=== PATIENT | male | born 2000 | race Caucasian/White ===

== ENCOUNTER 2024-05-03 15:50 | Emergency (ER) | payer BC, SELFPAY ==
--- NOTE | ~2024-05-03 | CT_ITS ---
CLINICAL HISTORY: pain, CT abdomen and pelvis with contrast Comparison: None Findings: No consolidation or effusion. Scattered subcentimeter low-density lesions throughout the liver, likely cysts or hemangiomas, too small to characterize. No bowel obstruction, pneumoperitoneum, or pneumatosis. Normal appendix. The bones are intact. IMPRESSION: No acute findings. This document has been electronically signed by: Tony Carrillo MD on 05/04/2024 02:28:04
--- NOTE | 2024-05-03 16:13 | ED_ITS ---
HPI - General Adult General Chief complaint: Nausea/Vomiting/Diarrhea Stated complaint: nauseous/vomiting/dizzy/headache Time Seen by Provider: 05/03/24 22:18 Source: patient Limitations: no limitations History of Present Illness ED Provider: Marylou Ivan PA-C HPI narrative: 23-year-old male with a history of anxiety presents with the abdominal pain x2 weeks. Pain is generalized, triggered with eating. Associated nausea vomiting diarrhea. The diarrhea is intermittent, the nausea vomiting is a daily event. Denies sick contacts with same symptoms, recent travel, use of antibiotics or hospitalization. Related Data Previous Rx's ?Medication ?Instructions ?Recorded sucralfate 100 mg/mL oral 10 ml PO QID PRN indigestion #400 05/04/24 suspension (Carafate) mL Allergies Allergy/AdvReac Type Severity Reaction Status Date / Time No Known Allergies Allergy Verified 05/03/24 16:17 [No Known Allergies*] Review of Systems 2 Review of Systems: Yes all other systems are reviewed and are negative Constitutional: Constitutional: Denies fatigue and Denies fever(s) Cardiovascular: Cardiovascular: Denies chest pain and Denies dyspnea Respiratory: Respiratory: Denies cough and Denies dyspnea Gastrointestinal: Gastrointestinal: Reports abdominal pain, Denies constipation, Reports diarrhea, Reports nausea and Reports vomiting Genitourinary: Genitourinary: Denies hematuria, Denies dysuria and Denies flank pain Endocrine: Endocrine: Denies fatigue PMFSH Past Medical History Attestation statement: The following information was validated with the patient. Physical Exam ED Vital Signs: Vital Signs - 24 hr 05/03/24 16:14 05/04/24 00:55 Temperature 98.2 F Pulse Rate 103 H 75 Respiratory Rate 18 18 Blood Pressure 112/85 119/61 Pulse Oximetry 98 100 Oxygen Delivery Method Room Air Room Air BMI result Body Mass Index 23.0 Const Other: Alert well-appearing Orientation/consciousness: patient oriented x3 Resp Effort & Inspection: normal respiratory effort Cardio Other: Normal peripheral perfusion GI Other: Abdomen is soft, nondistended, no focal regions of palpable pain no guarding Skin Other: Warm dry no rash Neuro General: patient oriented x3, gait normal, no focal motor deficits and CN's II- XI intact bilaterally Psych Other: Calm cooperative Course Course Course Narrative: This is a rapid medical exam performed by C. Flower, NETWORK SYSTEMS INTEGRATOR: Additional HPI, ROS, PE not included below will be deferred to primary provider. Patient is a 23-year-old male presenting to the emergency department with complaint of epigastric pain, nausea, vomiting, diarrhea, headache and dizziness. States epigastric pain has significantly improved. Symptoms for over 2 weeks. Denies fevers. Seen at urgent care last week and prescribed zofran, states is not helping. Plan: strep and viral serology, labs 1813 Patient to triage stating he feels lightheaded. Rechecked VS, 149/80, HR 106, 99% Medications Administered Discontinued Medications Generic Name Dose Route Start Last Admin Trade Name Freq PRN Reason Stop Dose Admin Dicyclomine HCl 20 mg 05/03/24 23:17 05/04/24 00:48 Dicyclomine Hcl 10 Mg Capsule PO 05/03/24 23:18 20 mg ONCE ONE Administration Sodium Chloride 1,000 mls @ 999 mls/hr 05/03/24 23:30 05/04/24 00:49 Ns IV 05/04/24 00:30 999 mls/hr .Q1H1M FAVIAN Administration Iohexol 85 ml 05/04/24 00:16 05/04/24 00:17 Iohexol 350 Mg/Ml 100 Ml Infus..Btl IV 05/04/24 00:17 85 ml ONCE ONE Administration Ondansetron HCl 4 mg 05/03/24 23:17 05/04/24 00:48 Ondansetron Hcl 4 Mg/2 Ml Vial IVPUSH 05/03/24 23:18 4 mg ONCE ONE Administration Medical Decision Making Medical Decision Making MDM Narrative: 23-year-old male with a history of anxiety presents with the abdominal pain x2 weeks. Pain is generalized, triggered with eating. Associated nausea vomiting diarrhea. The diarrhea is intermittent, the nausea vomiting is a daily event. Denies sick contacts with same symptoms, recent travel, use of antibiotics or hospitalization. No relevant issues History: Per patient I have considered the following differential diagnoses: Biliary colic, cholecystitis, viral gastroenteritis, diverticulitis, traveler's diarrhea, C diff Plan: Patient here with generalized abdominal pain and a nonfocal exam. Given postprandial symptoms, I am considering underlying biliary pathology as cause for symptoms, however, there was no focal right upper quadrant discomfort on exam. This could be viral gastroenteritis, however he has had symptoms for a prolonged duration of time. To note he has no risk factors for C diff or traveler's diarrhea. We will be obtaining a CT scan. Labs: No leukocytosis, not anemic, no electrolyte abnormality, LFTs normal, viral panel negative, urine not CT abdomen and pelvis:Findings: No consolidation or effusion. Scattered subcentimeter low-density lesions throughout the liver, likely cysts or hemangiomas, too small to characterize. No bowel obstruction, pneumoperitoneum, or pneumatosis. Normal appendix. The bones are intact. IMPRESSION: No acute findings. This document has been electronically signed by: Tony Carrillo MD on 05/04/2024 02:28:04 Lab Data 05/03/24 16:26 05/03/24 16:26 Labs: Lab Results 05/03/24 Range/Units 16:26 WBC 6.9 (4.8-10.8) X10*3/uL RBC 5.22 (4.60-5.80) X10*6/uL Hgb 16.8 (14.0-18.0) g/dl Hct 46.7 (42.0-52.0) % MCV 89.5 (80.0-98.0) fL MCH 32.2 (27.0-33.0) pg MCHC 36.0 (31.0-36.0) g/dl RDW 11.9 (11.0-16.0) % Plt Count 292 (160-400) X10*3/uL MPV 9.2 L (9.4-12.4) fL Immature Gran % (Auto) 0.3 (0.0-0.4) % Neut % (Auto) 73.5 H (45-73) % Lymph % (Auto) 18.8 L (20-40) % Phelps % (Auto) 7.0 (2-11) % Eos % (Auto) 0.3 (0-4) % Baso % (Auto) 0.1 (0-2) % Lymph # (Auto) 1.3 (1.2-4.9) X10*3/uL [place]helps # (Auto) 0.5 (0.1-1.2) X10*3/uL Eos # (Auto) 0.0 (0.0-0.4) X10*3/uL Baso # (Auto) 0.0 (0.0-0.2) X10*3/uL Abs Immat Gran (auto) 0.02 (0.00-0.03) X10*3/uL Absolute Neuts (auto) 5.0 (2.0-8.3) x10*3/uL Absolute Nucleated RBC 0.000 (0.0-0.012) X10*3/uL Nucleated RBC % (auto) 0.0 (0.0-0.2) /100WBC Sodium 138 (135-145) mmol/L Potassium 3.4 (3.3-5.1) mmol/L Chloride 104 (96-108) mmol/L Carbon Dioxide 25 (22-29) mmol/L Anion Gap 12 (12-20) BUN 9 (9-16) mg/dL Creatinine 0.96 (0.5-1.4) mg/dL Estim Creat Clear Calc 98.4 Estimated GFR > 60 Random Glucose 93 (60-115) mg/dL Calcium 9.6 (8.4-10.2) mg/dL Magnesium 2.1 (1.6-2.6) mg/dL Total Bilirubin 0.9 (0.0-1.0) mg/dL AST 19 (5-37) U/L ALT 17 (0-40) U/L Alkaline Phosphatase 69 (39-117) U/L Total Protein 7.6 (6.5-8.0) g/dL Albumin 5.0 (3.5-5.0) g/dL Urine Color Yellow Urine Appearance Clear Urine pH 6.0 (5.0-9.0) Ur Specific [place] 1.010 (1.005-1.025) Urine Protein Negative (Neg-Trace) mg/dL Urine Glucose (UA) Negative (Negative) mg/dL Urine Ketones 15 (Negative) mg/dL Urine Blood Negative (Negative) Urine Nitrite Negative (Negative) Ur Leukocyte Esterase Negative (Negative) Influenza Type A (PCR) NEGATIVE (Negative) Influenza Type B (PCR) NEGATIVE (Negative) RSV RNA Qual (PCR) NEGATIVE (Negative) SARS-CoV-2 RNA (RT-PCR) NEGATIVE (Negative) S. pyogenes GrpA COSME Negative (Negative) Discharge Plan Discharge Clinical Impression: Abdominal pain Patient Disposition: Home, Self-Care Instructions: Diet for Stomach Ulcers and Gastritis (ED), Gastroesophageal Reflux Disease (ED), Abdominal Pain (ED) Additional Instructions: All of your labs were normal, there were no acute findings on the CT scan. I do believe your symptoms could be multifactorial. You could have IBS, you could have poorly controlled acid reflux. See home care instructions. There are many dietary triggers such as acidic food, spicy food, fatty food, meant, anything carbonated, alcohol. Do not eat 3 hours before bed. Eating smaller meals throughout the day, can help curb symptoms as well. Use the Carafate as needed for abdominal discomfort associated with the eating. You need to follow up with primary care for further assessment, if your symptoms persist. Prescriptions: New sucralfate [Carafate] 100 mg/mL suspension 10 ml PO QID PRN (Reason: indigestion) Qty: 400 0RF Rx Instructions: swish in mouth and swallow; use after food/drink Stand Alone Forms: Work/School Release Interventions: ED Discharge Assessment Last Done: 05/04/24 03:00 Discharge Date/Time: 05/04/24 03:00 Print Language: Malay
[2024-05-03 16:14] VITALS: BP 112/85; PULSE 103; RESP 18; TEMP 36.8; O2SAT 98; BMI 23.0
[2024-05-03 16:32] LABS: MANUAL DIFF FLAG NO
[2024-05-03 16:35] LABS: Appearance Urine Clear; Color Urine Yellow; Glucose Urine UA Negative (Negative); Leukocyte Esterase Urine Negative (Negative); Nitrite Urine Negative (Negative); Urine Blood Negative (Negative); Urine Ketones 15 mg/dL (Negative); Urine Protein Negative (Neg-Trace)
[2024-05-03 16:41] LABS: Basophils Percent Auto 0.1 % (0-2); Eosinophils Percent Auto 0.3 % (0-4); Hematocrit 46.7 % (42.0-52.0); Hemoglobin 16.8 g/dl (14.0-18.0); IDNOW Serial# 58CA691E; Imm Gran Abs Auto 0.02 X10*3/uL (0.00-0.03); Imm Gran Pct Auto 0.3 % (0.0-0.4); Lymphocytes Absolute Auto 1.3 X10*3/uL (1.2-4.9); Lymphocytes Percent Auto 18.8 % (20-40); Mean Corpuscular Hemoglobin 32.2 pg (27.0-33.0); Mean Corpuscular Volume 89.5 fL (80.0-98.0); Mean Platelet Volume 9.2 fL (9.4-12.4); Monocytes Absolute Auto 0.5 X10*3/uL (0.1-1.2); Neutrophils Percent Auto 73.5 % (45-73); Platelet Count 292 X10*3/uL (160-400); Red Blood Count 5.22 X10*6/uL (4.60-5.80); Red Cell Distribution Width 11.9 % (11.0-16.0); Strep A Nucleic Acid Negative (Negative); White Blood Count 6.9 X10*3/uL (4.8-10.8)
[2024-05-03 16:59] LABS: Alanine Aminotransferase 17 U/L (0-40); Alkaline Phosphatase 69 U/L (39-117); Anion Gap 12 (12-20); Aspartate Amino Transferase 19 U/L (5-37); Bilirubin Total 0.9 mg/dL (0.0-1.0); Blood Urea Nitrogen 9 mg/dL (9-16); Calcium 9.6 mg/dL (8.4-10.2); Carbon Dioxide 25 mmol/L (22-29); Chloride 104 mmol/L (96-108); Creatinine Clr Calc Pharmacy 98.4; Estimated Glomerular Filt Rate > 60; Glucose Random 93 mg/dL (60-115); Magnesium 2.1 mg/dL (1.6-2.6); Potassium 3.4 mmol/L (3.3-5.1); Sodium 138 mmol/L (135-145); Total Protein 7.6 g/dL (6.5-8.0)
[2024-05-03 17:15] LABS: Influenza A PCR NEGATIVE (Negative); Influenza B PCR NEGATIVE (Negative); Resp Syncy Virus RNA Qual PCR NEGATIVE (Negative); SARS COV2 PCR INHOUSE NEGATIVE (Negative)
[2024-05-04] MEDS: iohexoL 350 MG/ML 100 ML INFUS..BTL 85 ML IV (00:17)
[2024-05-04] MEDS: ondansetron HCL 4 MG/2 ML VIAL IVPUSH (00:48)
[2024-05-04] MEDS: Dicyclomine HCl 10 MG CAPSULE 20 MG PO (00:48)
[2024-05-04] MEDS: 0.9 % Sodium Chloride 1,000 ML 999 ML IV (00:49)
[2024-05-04 00:55] VITALS: BP 119/61; PULSE 75; RESP 18; O2SAT 100
[2024-05-04 02:56] VITALS: BP 99/53; PULSE 68; RESP 14; TEMP 37.2; O2SAT 98
[2024-05-04 03:00] VITALS: BP 99/53; PULSE 68; RESP 14; TEMP 37.2; O2SAT 98
== END 2024-05-04 03:00 | disposition home or self-care (01) ==
PROVIDERS: Registered Nurse Emergency; Emergency Provider Emergency Medicine; PCP Internal Medicine
DX: R10.2 Pelvic and perineal pain (principal); R11.2 Nausea with vomiting, unspecified; R42 Dizziness and giddiness; R51.9 Headache, unspecified; R19.7 Diarrhea, unspecified; Z03.818 Encounter for observation for suspected exposure to other biological agents ruled out; Z79.899 Other long term (current) drug therapy
CPT/HCPCS: 0241U; 74177; 80053; 81003; 83735; 85025; 87651; 96374; 99284; J2405; Q9967

== ENCOUNTER → 2024-05-04 | Outpatient (BNV) | payer BC, SELFPAY | PROVIDERS: Emergency Provider Emergency Medicine; PCP Internal Medicine; Visit Provider Radiology Diagnostic Radiology | DX: R10.9 Unspecified abdominal pain (principal) | CPT/HCPCS: 74177 ==

== ENCOUNTER 2024-06-11 09:51 | Outpatient (AMB) | payer BC, SELFPAY ==
--- NOTE | 2024-06-11 09:59 | MHC.PC.OV ---
Vital Signs 06/11/24 10:01 Height 5 ft 2.5 in Weight 142 lb BMI 25.6 BP 120/68 Blood Pressure Location Rt brachial Pulse 80 Pulse Source Pulse Oximeter Temp 97.9 F Pulse Oximetry (%) 98 Intake Visit Reasons: establish care Intake Note: having anxiety for over the past month which is making him vomit Allergies No Known Allergies [No Known Allergies*] Allergy (Verified 06/11/24 10:28) Medication List - Last Reconciled 06/11/24 by Brynn Tapia PA-C No Known Home Meds Dental Screening Did you have a dental visit in the last 12 months?: No Did you have a dental problem in the last 6 months where you did not have access to dental care?: No Was dental information given to patient?: [facility] Medical History (Updated 06/11/24 @ 10:49 by Brynn Tapia PA-C) Abdominal pain Nausea and vomiting in adult Abnormal liver CT Anxiety Establishing care with new doctor, encounter for ADHD Family History Mother Overdose Paternal Grandmother Breast cancer Father Aldridge's palsy Social History Patient Tobacco Use Status: Never used Tobacco e-Cigarette/Vaping Use: Never Used Second Hand Smoke Exposure: No service: No Current occupational status: employed Current occupation: at [employer] Cognitive needs: No Hearing needs: No Vision needs: No Physical exam (Primary Care) Vital Signs: Last Vital Signs Temp 97.9 F 06/11/24 10:01 Pulse 80 06/11/24 10:01 BP 120/68 06/11/24 10:01 Pulse Ox 98 06/11/24 10:01 Care Plan Goal for BP management: <130/80 at goal BMI result Body Mass Index 25.6 BMI Assessment/Plan discussion: High BMI High, discussed plan: lifestyle, weight reduction, dietary, physical activity and alcohol moderation Coding Level of Care Code New Pt Level 4 (90487) Complex EM visit Add On G2211 Diagnoses Establishing care with new doctor, encounter for Z76.89 ADHD F90.9 Anxiety F41.[address] R93.2 Nausea and vomiting in adult R11.2 Abdominal pain R10.9 Assessment & Plan Assessment & Plan (1) Establishing care with new doctor, encounter for: Code(s): Z76.89 - Persons encountering health services in other specified circumstances Category: Medical (2) ADHD: Code(s): F90.9 - Attention-deficit hyperactivity disorder, unspecified type Category: Medical Plan: Will attempt to obtain medical records from oven unloader to ensure patient was diagnosed with ADHD and if so patient we can re-evaluate patient and also send referrals if indicated. Will continue to monitor. (3) Anxiety: Code(s): F41.9 - Anxiety disorder, unspecified Category: Medical Plan: Anxiety is well controlled at this time. Patient does not feel like he needs any medications. Denies any SI or HI. Will refer to GI to evaluate the patient's abdominal pain, nausea vomiting to ensure that this abdominal pain and nausea vomiting is not related to any other abnormality due to CT scan revealed multiple liver lesions. Condition is chronic and stable will continue to monitor. (4) Abnormal liver CT: Code(s): R93.2 - Abnormal findings on diagnostic imaging of liver and biliary tract Category: Medical Plan: Patient being referred to GI due to intermittent nausea vomiting along with abdominal pain. May be related to anxiety although had a recent CT scan on 05/03/2024 which revealed multiple liver lesions therefore will further evaluate. Reports 8 lb weight loss. Denies any other symptoms related to this. Will refer to GI for further evaluation. Condition is stable at this time. (5) Nausea and vomiting in adult: Code(s): R11.2 - Nausea with vomiting, unspecified Category: Medical Plan: Patient with intermittent nausea vomiting along with abdominal pain. May be related to anxiety. Although had a CT scan on 05/03/2024 which revealed multiple liver lesions therefore will further evaluate. Reports a lb weight loss. Denies any other symptoms related to this. Will refer to GI for further evaluation and management. I offered patient antiemetics although reports he was given Zofran in the hospital upon discharge prescription and no symptomatic relief. Reports it is intermittent not constant. Condition is stable at this time. (6) Abdominal pain: Code(s): R10.9 - Unspecified abdominal pain Category: Medical Plan: Patient with intermittent nausea vomiting along with abdominal pain. May be related to anxiety. Although had a CT scan on 05/03/2024 which revealed multiple liver lesions therefore will further evaluate. Reports a lb weight loss. Denies any other symptoms related to this. Will refer to GI for further evaluation and management. I offered patient antiemetics although reports he was given Zofran in the hospital upon discharge prescription and no symptomatic relief. Reports it is intermittent not constant. Condition is stable at this time. Plan Plan Patient was informed and verbally consented to the use of an ambient scribe for clinic note documentation during this visit. 1. Abdominal Pain And Nausea Blood tests will be repeated to confirm the liver and renal function status. A referral to Gastroenterology will be made for a thorough evaluation and potential further imaging of the liver lesions. 2. Family History Of Breast Cancer Discussed self-examination importance, and PSA testing is arranged. 3. Weight Loss Emphasis is given to supporting nutritional intake and monitoring weight. 4. Anxiety The impact of anxiety on the patient's gastrointestinal symptoms is noted, with consideration for future intervention if necessary. 5. Liver Cysts/Hemangiomas Further investigation through Gastroenterology will assist in determining the precise nature of the liver lesions reported in the CT scan. Discussion Notes During the visit, we discussed the likely diagnosis of anxiety-related gastrointestinal discomfort and the potential for liver cysts or hemangiomas. I recommended a comprehensive blood work analysis to assess any underlying deficiencies or anomalies. I suggested a referral to Gastroenterology to further examine the liver lesions, which may entail imaging or active monitoring based on their advice. We reviewed his family history of breast cancer, emphasizing the importance of regular self-exams and discussed performing a PSA as a routine screening test. Additionally, I advised on general health maintenance, such as ensuring regular dental and eye examinations. Orders: Orders Complete Blood Count Auto Diff Today Z00.00 - Encounter for general adult medical examination without abnormal findings Comprehensive [place]. Panel Fast Today Z00.00 - Encounter for general adult medical examination without abnormal findings C Reactive Protein Today Z00.00 - Encounter for general adult medical examination without abnormal findings Lipid Panel Today Z00.00 - Encounter for general adult medical examination without abnormal findings Liver Panel Today Z00.00 - Encounter for general adult medical examination without abnormal findings Magnesium Today Z00.00 - Encounter for general adult medical examination without abnormal findings Phosphorus Today Z00.00 - Encounter for general adult medical examination without abnormal findings Vitamin B12 and Folate Today Z00.00 - Encounter for general adult medical examination without abnormal findings Vitamin D 25-OH Total Today Z00.00 - Encounter for general adult medical examination without abnormal findings Zinc Today Z00.00 - Encounter for general adult medical examination without abnormal findings PSA,Total (Free>4and<10) Today Z00. - Encounter for general adult medical examination without abnormal findings Erythrocyte Sedimentation Rate Today Z00.00 - Encounter for general adult medical examination without abnormal findings TSH reflex Free T4 Today Z00. - Encounter for general adult medical examination without abnormal findings Parathyroid Hormone Intact Today Z00.00 - Encounter for general adult medical examination without abnormal findings Hemoglobin A1c Today Z00. - Encounter for general adult medical examination without abnormal findings Vitamin B1 Today Z00.00 - Encounter for general adult medical examination without abnormal findings Testosterone, Total Today Z00. - Encounter for general adult medical examination without abnormal findings Medications: Discontinued sucralfate (Carafate) swish in mouth and swallow; use after food/drink Discontinued Reason: Patient Refused 10 mL PO QID PRN 400 mL 0RF indigestion Patient Instructions: Patient Instructions - Follow up with the recommended blood work, fasting for 10-12 hours hours before testing. - Visit the Gastroenterology specialist at the advised location for further evaluation of liver findings. - Maintain a balanced diet to help recover from recent weight loss. - Monitor anxiety levels and implement strategies that may help manage anxiety-related symptoms. - Be aware of any new or worsening symptoms and return if they occur. - Perform regular self-examinations and be informed of family breast cancer history. - Keep up with routine eye and dental screenings when possible. Scribe Plan - Not visible on output: History of Present Illness The patient is a 23-year-old male presenting to [facility] care with a new primary care provider. Patient has not seen a primary care provider since his oven unloader. He reports his oven unloader was Juan Rayo although he is not certain. He reports he was out of [place]. He reports recently he went to the emergency department on 05/03/2024 due to abdominal pain, nausea and vomiting. He believes it may be related to anxiety. Reports the abdominal pain is intermittent along with the nausea and vomiting. It is not present at this time. It comes on randomly. He has not noticed any foods are exacerbating this nausea, vomiting or abdominal pain. It usually goes away on its own without any medications per patient. He recently underwent a CT scan at the ER, where multiple small liver lesions were identified. The symptoms, especially nausea and vomiting, intensified over a period of two weeks, contributing to an 8-pound weight loss due to poor food intake. 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 His medical history includes Attention Deficit Hyperactivity Disorder (ADHD) and episodic anxiety. He mentioned a family history of breast cancer in his paternal grandmother, and his mother due to an overdose at a relatively young age of 46 last year June,. The patient denies a family history of colon cancer, including for himself. He is aware of the importance of regular screenings and plans to pursue both eye and dental exams to meet health maintenance needs. 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 - Family Status: Supported by his father and stepmother; his mother is due to an overdose. - Nutrition: Reports poor nutritional intake during episodes of nausea and vomiting, resulting in unintentional weight loss. - Functional Status: No reported impairments. Review of Systems - Gastrointestinal: Reports nausea, vomiting, and abdominal pain. - Psychological: Reports anxiety exacerbated in stressful situations. - General: Denies unintentional weight loss outside of the not eating period. - Respiratory: Denies issues. Physical Exam Appearance: Alert. Oriented X3. No acute distress. Head: Normal external exam. Normocephalic. Atraumatic. Eyes: Pupils are equal, round, and reactive to light. Extraocular movements intact. Conjunctiva and sclera normal. Eyelids normal. Ears: External auditory canal normal. Tympanic membranes normal. No wax buildup noted. Throat: Pharynx normal. Uvula midline. Moist mucous membranes. Neck: Normal inspection. Neck supple. Full range of motion. No adenopathy. Thyroid Normal. No meningeal signs. No neck mass noted. Cardiovascular: Normal heart rate and rhythm. Heart sound normal. No murmurs noted. Pulses normal throughout. Respiratory: No respiratory distress. Painless inspiration. Breath sounds normal. No wheezes/rales/rhonchi noted. Chest nontender. No accessory muscle usage noted or decreased air movement noted. Abdomen: Soft and nontender. Bowel sounds normal in all 4 quadrants. No distention noted. No organomegaly noted. No visible injury noted. No pain upon palpation of the liver. Back: No costovertebral angle tenderness. Full range of motion noted. Skin: Skin warm and dry. Normal skin color. Normal skin turgor. No rashes/lesions/lacerations noted. Extremities: No lower extremity edema. Extremities exhibit normal range of motion. Extremities nontender. Neuro: Oriented X 3. No motor deficit. No sensory deficit. Reflexes normal. Results - Imaging: CT scan of the abdomen revealing scattered submental low-density lesions throughout the liver, likely cysts or hemangiomas. - Blood Work from ER: LFTs normal; negative for COVID; urine normal.
[2024-06-11 10:01] VITALS: BP 120/68; PULSE 80; TEMP 36.6; O2SAT 98; BMI 25.6
== END 2024-06-11 10:27 | disposition home or self-care (01) ==
LOC: HO.HMCSH 09:51
PROVIDERS: PCP Internal Medicine; Visit Provider Physician Assistant Medical
DX: Z76.89 Persons encountering health services in other specified circumstances (principal); F90.9 Attention-deficit hyperactivity disorder, unspecified type; F41.9 Anxiety disorder, unspecified; R93.2 Abnormal findings on diagnostic imaging of liver and biliary tract; R11.2 Nausea with vomiting, unspecified; R10.9 Unspecified abdominal pain

== ENCOUNTER 2024-06-11 09:51 | Outpatient (REF) | payer BC, SELFPAY ==
[2024-06-11 13:29] LABS: MANUAL DIFF FLAG NO
[2024-06-11 13:41] LABS: Basophils Percent Auto 0.2 % (0-2); Eosinophils Percent Auto 0.7 % (0-4); Hematocrit 46.9 % (42.0-52.0); Hemoglobin 15.8 g/dl (14.0-18.0); Imm Gran Abs Auto 0.01 X10*3/uL (0.00-0.03); Imm Gran Pct Auto 0.2 % (0.0-0.4); Lymphocytes Absolute Auto 1.1 X10*3/uL (1.2-4.9); Lymphocytes Percent Auto 24.1 % (20-40); Mean Corpuscular HGB Conc 33.7 g/dl (31.0-36.0); Mean Corpuscular Hemoglobin 31.4 pg (27.0-33.0); Mean Corpuscular Volume 93.2 fL (80.0-98.0); Mean Platelet Volume 10.1 fL (9.4-12.4); Monocytes Absolute Auto 0.3 X10*3/uL (0.1-1.2); Monocytes Percent Auto 7.2 % (2-11); Neutrophils Absolute Auto 3.1 x10*3/uL (2.0-8.3); Neutrophils Percent Auto 67.6 % (45-73); Platelet Count 260 X10*3/uL (160-400); Red Blood Count 5.03 X10*6/uL (4.60-5.80); Red Cell Distribution Width 12.3 % (11.0-16.0); White Blood Count 4.6 X10*3/uL (4.8-10.8)
[2024-06-11 13:47] LABS: Estimated Average Glucose 105 mg/dL; Hemoglobin A1c % 5.3 % (<6.0)
[2024-06-11 14:07] LABS: Alanine Aminotransferase 18 U/L (0-40); Albumin Level 4.8 g/dL (3.5-5.0); Alkaline Phosphatase 59 U/L (39-117); Anion Gap 10 (12-20); Aspartate Amino Transferase 17 U/L (5-37); Bilirubin Direct 0.2 mg/dL (0.0-0.5); Bilirubin Total 0.6 mg/dL (0.0-1.0); Blood Urea Nitrogen 14 mg/dL (9-16); C Reactive Protein < 0.04 mg/dL (< or = 0.50); Calcium 9.5 mg/dL (8.4-10.2); Carbon Dioxide 27 mmol/L (22-29); Chloride 107 mmol/L (96-108); Cholesterol 219 mg/dL (<200); Estimated Glomerular Filt Rate > 60; Glucose Fasting 96 mg/dL (60-99); HDL Cholesterol 50 mg/dL (>40); LDL Cholesterol Calculated 149 mg/dL (<100); Magnesium 1.9 mg/dL (1.6-2.6); Phosphorus 2.6 mg/dL (2.7-4.5); Potassium 3.8 mmol/L (3.3-5.1); Sodium 140 mmol/L (135-145); Total Protein 7.2 g/dL (6.5-8.0); Triglycerides 102 mg/dL (<150)
[2024-06-11 14:08] LABS: PSA,Total (Free>4and<10) 1.05 ng/mL (0.00-4.00)
[2024-06-11 14:11] LABS: Parathyroid Hormone Intact 70.3 pg/mL (8.7-77.1)
[2024-06-11 14:19] LABS: Erythrocyte Sedimentation Rate 2 MM/HR (0-15)
[2024-06-11 14:21] LABS: Folate 9.1 ng/mL (> or = 4.0); TSH reflex Free T4 1.15 uIU/mL (0.32-4.0); Vitamin B12 251 pg/mL (200-900); Vitamin D 25-OH Total 8.2 ng/mL (>30)
[2024-06-14 05:23] LABS: Zinc 81 mcg/dL (60-130)
[2024-06-15 16:34] LABS: Testosterone, Total 394 ng/dL (250-1100)
[2024-06-18 13:58] LABS: Vitamin B1 9 nmol/L (8-30)
== END 2024-06-11 09:52 | disposition home or self-care (01) ==
LOC: HO.HMGCLDS 09:51
PROVIDERS: PCP Internal Medicine; Visit Provider Physician Assistant Medical
DX: Z76.89 Persons encountering health services in other specified circumstances (principal); F90.9 Attention-deficit hyperactivity disorder, unspecified type; F41.9 Anxiety disorder, unspecified; R93.2 Abnormal findings on diagnostic imaging of liver and biliary tract; R11.2 Nausea with vomiting, unspecified; R10.9 Unspecified abdominal pain; R63.4 Abnormal weight loss; Z68.25 Body mass index [BMI] 25.0-25.9, adult; Z12.5 Encounter for screening for malignant neoplasm of prostate; Z80.3 Family history of malignant neoplasm of breast; Z00.00 Encounter for general adult medical examination without abnormal findings; Z13.1 Encounter for screening for diabetes mellitus
CPT/HCPCS: 36415; 80053; 80061; 80076; 82248; 82306; 82607; 82746; 83036; 83735; 83970; 84100; 84153; 84403; 84425; 84443; 84630; 85025; 85652; 86140

== ENCOUNTER 2024-07-18 15:20 | Outpatient (AMB) | payer BC, SELFPAY ==
--- NOTE | 2024-07-18 15:24 | A.OFFVIS_ITS ---
Vital Signs 07/18/24 15:25 Height 5 ft 2 in Weight 142 lb BMI 26.0 BP 122/58 L Blood Pressure Location Rt brachial Position Sitting Pulse 82 Pulse Source Pulse Oximeter Pulse Oximetry (%) 98 Oxygen Delivery Method Room Air Intake Visit Reasons: Abnormal findings of Liver/Biliary Tract Intake Note: NEW PATIENT for initial assessment Abd pain and abn liver findings. Chief Complaint; C/O LUQ pain persistence which seems worse in the morning. Pt also reports having GERD sx every few days which he states is a relatively new issue for him. No pertinent FMHx. No additional sx or concerns at this time. Roof Technician Required: No Accompanied by: Self / Same As Patient Allergies No Known Allergies [No Known Allergies*] Allergy (Verified 07/18/24 15:29) HPI HPI Abnormal findings of Liver/Biliary Tract: Details: ED VISITS 05/03/2024 MDM Narrative: 23-year-old male with a history of anxiety presents with the abdominal pain x2 weeks. Pain is generalized, triggered with eating. Associated nausea vomiting diarrhea. The diarrhea is intermittent, the nausea vomiting is a daily event. Denies sick contacts with same symptoms, recent travel, use of antibiotics or hospitalization. No relevant issues History: Per patient I have considered the following differential diagnoses: Biliary colic, cholecystitis, viral gastroenteritis, diverticulitis, traveler's diarrhea, C diff Plan: Patient here with generalized abdominal pain and a nonfocal exam. Given postprandial symptoms, I am considering underlying biliary pathology as cause for symptoms, however, there was no focal right upper quadrant discomfort on exam. This could be viral gastroenteritis, however he has had symptoms for a prolonged duration of time. To note he has no risk factors for C diff or traveler's diarrhea. We will be obtaining a CT scan. Labs: No leukocytosis, not anemic, no electrolyte abnormality, LFTs normal, viral panel negative, urine not CT abdomen and pelvis:Findings: No consolidation or effusion. Scattered subcentimeter low-density lesions throughout the liver, likely cysts or hemangiomas, too small to characterize. No bowel obstruction, pneumoperitoneum, or pneumatosis. Normal appendix. The bones are intact. IMPRESSION: No acute findings. TODAY'S VISIT: 23-year-old patient with past medical history of and anxiety, ADHD is here today for initial consultation. Patient was sent to us by his PCP. Patient was seen in the ED back in April for nausea and vomiting. Patient reports that he developed epigastric pain that lasted for several days. Pain was triggered by food. Patient reports that he stopped eating and then developed nausea and vomiting. Patient last few lb during that time and was seen in the ER. Patient had no leukocytosis, no acute findings was appreciated on the CT scan. Symptoms resolved after patient changed his diet. He saw new PCP in May. Additional lab work was ordered and everything was normal except for low vitamin-D level. Script for vitamin-D level was sent. Currently patient is taking 1000 units daily. Patient works in the [employer] and is inside for the most part. Patient admits epigastric pain and sometimes left upper quadrant pain most frequently related to food. Patient is trying to see what food is triggering his symptoms. Patient reports sometimes abdominal bloating, occasional constipation. Patient reports that he drinks mainly water throughout the day. Did change his diet and no longer is eating snacks late at night. Patient does not drink alcohol or smoke marijuana. Patient does admits to vaping. Patient denies dyspepsia, dy sphagia or odynophagia. Denies melena, hematochezia, unintentional weight loss (since ED visit) or ribbon like stools. CT scan showed scattered subcentimeter low-density lesions throughout the liver likely cysts or hemangioma noted by radiology. Patient denies any family history of liver disease. Patient denies any right upper quadrant pain [facility] History Weight loss Abdominal pain Nausea and vomiting in adult Abnormal liver CT Anxiety Establishing care with new doctor, encounter for ADHD Family History Mother Overdose Paternal Grandmother Breast cancer Father Aldridge's palsy Social History Patient Tobacco Use Status: Never used Tobacco e-Cigarette/Vaping Use: Never Used Second Hand Smoke Exposure: No service: No Current occupational status: employed Current occupation: at [employer] Cognitive needs: No Hearing needs: No Vision needs: No Review of Systems Const Denies weight gain and Denies weight loss ENT Reports no additional complaints, Denies dysphagia and Denies odynophagia Card Reports no additional complaints Resp Reports no additional complaints GI Reports abdominal pain (epigastric), Denies belching, Denies melena, Denies bloating, Denies change in bowel habits, Reports constipation (occasional), Denies dysphagia, Denies excessive flatus, Denies dyspepsia, Reports heartburn (occcasional), Denies diarrhea, Denies loose stools, Denies nausea, Denies odynophagia and Denies vomiting Reports no additional complaints Musc Reports no additional complaints Neuro Reports no additional complaints Psych Reports no additional complaints Endo Reports no additional complaints Physical Exam Const General: healthy appearing, no acute distress and well developed Nutritional Appearance: well nourished Orientation/consciousness: patient oriented x3 Resp Effort & Inspection: normal respiratory effort, able to speak in complete sentences, no tracheal deviation and symmetric chest movement Auscultation: clear to auscultation bilaterally Cardio Rate: regular rate GI Inspection: Yes normal to inspection and No distended Palpation (GI): Soft to palpation, not firm, nontender and No hepatosplenomegaly present Auscultation: normal bowel sounds General: Yes no CVA tenderness Back/Spine/Pelvis Back: no CVA tenderness Skin General skin exam: elasticity normal, turgor normal and dry skin Neuro General: patient oriented x3 Psych Appearance: grossly normal Mental Status: mental status grossly normal Assessment & Plan Assessment & Plan (1) Benign liver cyst: Code(s): K76.89 - Other specified diseases of liver (2) Abdominal pain: Code(s): R10.9 - Unspecified abdominal pain Category: Medical Qualifiers: Abdominal location: epigastric Qualified Code(s): R10.13 - Epigastric pain (3) Abnormal liver CT: Code(s): R93.2 - Abnormal findings on diagnostic imaging of liver and biliary tract Category: Medical (4) Postprandial epigastric pain: Code(s): R10.13 - Epigastric pain (5) Postprandial abdominal bloating: Code(s): R14.0 - Abdominal distension (gaseous) Plan Long discussion with patient about dietary changes. Discussed with patient avoiding dietary triggers and late night snacking. Staying upright for minimum 3 hours after meals discussed with him. Patient also reports left upper quadrant pain and postprandial abdominal bloating. Discussed with him low FODMAP diet. List of food recommended as well as list of food to avoid given to him. Scattered subcentimeter low-density cysts/hemiplegia was found. Will send patient for MRI with and without contrast to better evaluate. Most likely does are hemangiomas. Depending on MRI results patient will return if it will require surveillance. Patient otherwise will follow diet that was discussed with him and with PCP if needed. Patient was encouraged to call our office if his symptoms will return or if he will have any GI concerning symptoms. He is agreeable to this plan and verbalizes understanding of instructions. He was given the opportunity to ask questions and all questions answered. Thank you for allowing me to participate in his care Orders: Orders MR abdomen wo/w con Today K76.9 - Liver disease, unspecified Medications: Changed From cholecalciferol (vitamin D3) 25 mcg PO DAILY 90 caps 1RF Vitamin-D deficiency To cholecalciferol (vitamin D3) 75 mcg (3 x 25 mcg (1,000 unit)) PO DAILY 180 caps 1RF Vitamin-D deficiency Coding Level of Care Code New Pt Level 4 (85062) Diagnoses Benign liver cyst K76.89 Epigastric pain R10.13 Abdominal location: epigastric Abnormal liver CT R93.2 Postprandial epigastric pain R10.13 Postprandial abdominal bloating R14.0 Time Spent (min) 50 Comment 35 minutes spent with patient and additional 15 minutes spent reviewing his records
[2024-07-18 15:25] VITALS: BP 122/58; PULSE 82; O2SAT 98; BMI 26.0
== END 2024-07-18 16:04 | disposition home or self-care (01) ==
LOC: HO.HGI 15:21
PROVIDERS: PCP Internal Medicine; Visit Provider Nurse Practitioner Family
DX: K76.89 Other specified diseases of liver (principal); R10.13 Epigastric pain; R93.2 Abnormal findings on diagnostic imaging of liver and biliary tract; R14.0 Abdominal distension (gaseous)
CPT/HCPCS: 99204

== ENCOUNTER → 2024-07-18 15:20 | Outpatient (BNVA) | payer BC, SELFPAY | PROVIDERS: PCP Internal Medicine; Visit Provider Nurse Practitioner Family | DX: Z13.89 Encounter for screening for other disorder (principal) ==

== ENCOUNTER 2024-07-31 11:33 | Outpatient (REF) | payer BC, SELFPAY ==
--- NOTE | ~2024-07-31 | MR_ITS ---
CLINICAL HISTORY: K76.9 - Liver disease, unspecified MR abdomen with and without contrast Comparison: CT/SR - CT ABDOMEN PELVIS W IV CON - 05/04/24 00:05 EST Findings: No signal abnormality of the lung bases. Cholelithiasis, gallbladder wall thickening or pericholecystic fluid. There is a fold at the fundus of the gallbladder. No intrahepatic or extrahepatic biliary ductal dilatation. There are numerous punctate lesions in the liver which are hyperintense on T2 weighted images, hypointense on T1 weighted images and which do not demonstrate enhancement, measuring up to 6 mm. No loss of signal in the liver on the out of phase images. The liver is normal in size, measuring 15.4 cm in craniocaudal dimension. The liver capsule is normal in contour. Upper limit of normal sized spleen, measuring 12.0 cm. The other solid organs are unremarkable. No bowel wall thickening or dilation. A normal appendix is identified. Normal vasculature. No lymphadenopathy. No ascites. No bone marrow edema. 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 Tiny cysts may also be considered. This document has been electronically signed by: Mariaa Castellanos MD on 07/31/2024 21:30:33
[2024-07-31] MEDS: gadobutroL 7.5 ML VIAL IVPUSH (12:24)
== END 2024-07-31 11:34 | disposition home or self-care (01) ==
LOC: HO.MRI 11:33
PROVIDERS: PCP Internal Medicine; Visit Provider Nurse Practitioner Family
DX: K76.9 Liver disease, unspecified (principal)
CPT/HCPCS: 74183; A9585

== ENCOUNTER → 2024-07-31 11:36 | Outpatient (BNV) | payer BC, SELFPAY | PROVIDERS: PCP Internal Medicine; Visit Provider Radiology Diagnostic Radiology | DX: K76.89 Other specified diseases of liver (principal) | CPT/HCPCS: 74183 ==